=== PATIENT | female | born 1940 | race Caucasian/White ===

== ENCOUNTER 2019-07-26 09:30 | Outpatient (CLI) | payer MEDICARE ==
[~2019-07-26 09:30] MED LIST: ASPI-515 PO; CARV3.122 PO; POTA25TA4 PO; [UNRECOGNIZED DRUG - OTHER] PO
== END 2019-07-26 23:59 | disposition home or self-care (01) ==
LOC: CFH 09:30
PROVIDERS: ATTEND Internal Medicine Cardiovascular Disease
DX: I08.2 Rheumatic disorders of both aortic and tricuspid valves (principal); I10 Essential (primary) hypertension; I42.8 Other cardiomyopathies
CPT/HCPCS: 93306